=== PATIENT | female | born 1990 | race Caucasian/White ===

== ENCOUNTER 2020-09-15 13:02 | Emergency (ER) | payer MEDICAID ==
[~2020-09-15] VITALS: Ht 157.5 cm; Wt 90.9 kg
[2020-09-15] MEDS ORDERED: ketorolac trometh. 30mg/ml inj. IM ONE (14:45)
[2020-09-15 15:12] VITALS: BP 125/73
== END 2020-09-15 15:14 | disposition home or self-care (01) ==
LOC: ER 13:03
DX: M79.621 Pain in right upper arm (principal); W00.2XXA Other fall from one level to another due to ice and snow, initial encounter; Y93.89 Activity, other specified; Y92.89 Other specified places as the place of occurrence of the external cause; Y99.8 Other external cause status
CPT/HCPCS: 73030; 73060; 96372; 99284; J1885